=== PATIENT | female | born 1960 | race Caucasian/White ===

== ENCOUNTER → 2018-05-22 | Outpatient (CLI) | payer BC | END | disposition home or self-care (01) | LOC: LABPAT 12:20 | PROVIDERS: ATTEND Orthopaedic Surgery | DX: Z01.812 Encounter for preprocedural laboratory examination (principal) | CPT/HCPCS: 87070 ==

== ENCOUNTER 2018-05-29 10:28 | Inpatient (IN) | payer BC ==
[~2018-05-29 10:28] MED LIST: ACETAMINOPHEN TAB 500 MG TAB PO ONE; DEXAMETHASONE SOD PHOSPHATE 10 MG/ML 1 ML VIAL IV ONE; HYDROmorphone 1 MG/ML 1 ML SYRINGE IVP PRN; MIDAZOLAM 2 MG/2 ML VIAL IV PRN; ONDANSETRON 4 MG/2 ML VIAL IVP ONE; SCOPOLAMINE 1.5MG/72HR PATCH TRANSDERM ONE; TRANEXAMIC ACID 1,000 MG in SODIUM CHLORIDE 0.9% 50 ML IVPB ONE; ceFAZolin IN SWFI 2 GM/20 ML SYRINGE IVP ONE
[2018-05-29] MEDS: LACTATED RINGERS 1,000 ML IV SCH ×3 (11:41→23:33)
[2018-05-29] MEDS ORDERED: LIDOCAINE 1% 20 ML VIAL (10MG/ML) FOR IV START INTRADERMA ONE (11:42)
[2018-05-29] MEDS ORDERED: MIDAZOLAM 2 MG/2 ML VIAL ONE (12:33)
[2018-05-29] MEDS ORDERED: TRANEXAMIC ACID 1,000 MG/10 ML VIAL ONE (12:33)
[2018-05-29] MEDS ORDERED: SODIUM CHLORIDE 0.9% 100 ML BAG ONE (12:33)
[2018-05-29] MEDS ORDERED: PROPOFOL 10 MG/ML 20 ML VIAL IV ONE (12:33)
[2018-05-29] MEDS ORDERED: fentaNYL (PF) 50 MCG/ML 2 ML AMP ONE (12:33)
[2018-05-29] MEDS ORDERED: ceFAZolin 3,000 MG in SODIUM CHLORIDE 0.9% IRRIGATIO 3,000 ML IRRIGATION ONE (13:08)
[2018-05-29] MEDS: ROPIVACAINE 246.25 MG, EPINEPHrine 0.5 MG, KETOROLAC 30 MG, cloNIDine HCL/PF 80 MCG, WA... MISCELLANE ONE ×10 (13:24→13:59)
[2018-05-29] MEDS ORDERED: LACTATED RINGERS 1,000 ML IV ONE (14:15)
--- NOTE | 2018-05-29 14:17 | P.OP ---
Date of Procedure: 05/29/18 Procedure(s) Performed: PREOPERATIVE DIAGNOSIS: Left knee severe osteoarthritis with genu varum POSTOPERATIVE DIAGNOSIS: Left knee severe osteoarthritis with genu varum OPERATION: Left knee cemented total replacement arthroplasty. ANESTHESIA: Spinal ESTIMATED BLOOD LOSS: 100 ml. AUTO [employer] CONDITIONING INSTALLER: Jocelyn West PA-C (assistance with: patient positioning, retraction, exposure, hemostasis, leg positioning, implantation, irrigation, closure, dressing) COMPLICATIONS: None apparent. COMPONENTS IMPLANTED: Persona system from [employer] INDICATIONS: Anita is a 57-year-old female with a history of left knee osteoarthritis. Conservative treatment has been tried and has been unsuccessful in controlling symptoms adequately. The operation of knee replacement has been discussed at length in the office, as well as potential risks and complications. These are inclusive of, but not limited to: bleeding, infection, scarring, discomfort, blood vessel and nerve damage, need for further surgery, failure to relieve symptoms, persistence, recurrence, or worsening of problems, loosening, dislocation, wear, blood clot, pulmonary embolism, , gait dysfunction, stiffness, and other risks as discussed in the office. The patient elects to proceed and the consent form has been signed. PROCEDURE: The patient was taken to the operating room and positioned on the operating room table in the supine position. Anesthesia was initiated. Care was taken to make sure that all pressure points were adequately padded. The operative lower extremity was prepped and draped in the usual aseptic fashion using ChloraPrep. Ioban drape was used for the case and the patient received intravenous antibiotics within one hour of the incision. A pneumotourniquet and leg dwyer were used for the case. The limb was exsanguinated with an Esmarch bandage and the tourniquet was inflated to 350 mmHg. Time-out was called confirming the patient's identity, side, procedure and administration of antibiotics and tranexamic acid, 1 g IV. The incision was then created midline directly over the knee, carried down through skin and into the subcutaneous tissues and down to fascia. Full thickness subcutaneous medial flap was developed. Medial parapatellar arthrotomy was performed and the interior of the knee was inspected. There was end-stage osteoarthritis of the knee with a mild to moderate genu varum type deformity. The fat pad was excised and proximal medial release on the tibia was completed using meticulous dissection and a curved osteotome. The anterior cruciate ligament was taken down. Note was made of significant attrition of the anterior and significant degenerative appearance of the posterior cruciate ligaments. The exposure was excellent. The knee was flexed 90 degrees and the patella was everted. A spot was chosen on the femur approximately 1 cm anterior to the posterior cruciate ligament insertion and an intramedullary hole was created within the femur. The intramedullary guide was then set to 5 degrees of valgus. The distal cutting block was attached and pinned into position. An appropriate amount of distal femoral resection was set. The oscillating saw was then used to make the distal femoral cut. This cut was confirmed to be flat with the flat end of an osteotome. The retractors were placed around the tibia and the tibial surface was addressed. The angle and depth of resection was adjusted using an extramedullary cutting guide. The guide had a built-in 3 degree posterior slope cut. Once the cutting guide was adjusted appropriately and in line with the axis of the tibia and confirmed to be in good position in relation to the second metatarsal and transmalleolar axis, the tibial cut was then created with protection of the posterior neurovascular structures and the collateral ligaments. The tibial cut surface was removed and sized. Femoral sizing was then accomplished using anterior referencing. Care was taken to analyze the posterior condyles for signs of deficiency or severe wear, and adjustments to the guide were made, as appropriate. 3 degree external rotation pins were placed. The cutting jig for the femur was applied to these pins. The planned cuts were further analyzed prior to performing them with the oscillating saw. No femoral notching was produced. Bone fragments were removed and the cut surfaces were finished, as necessary, with a reciprocating saw. Spacer block technique was then used to confirm that the flexion and extension gaps were equal. Soft tissue releases and adjustment of the tibial and/or femoral cuts were made, as necessary, until the gaps were equal. This included release of the posterior cruciate ligament, which was tight in this patient. The femur was then further finished for a posterior cruciate ligament substituting component. Patellar resurfacing was performed using a reamer. The size of the required patellar component was estimated and the patellar surface was then reamed down to a residual thickness which would recreate the [place] thickness with the component. The exact placement of the patellar component was adjusted for position based on preoperative x-rays and intraoperative findings. Prior to placing trial components, anesthetic solution consisting of ropivicaine with epinephrine, ketorolac, and clonidine was injected carefully and methodically in a grid pattern using aspiration technique into the soft tissue around the knee circumferentially, starting with the deeper tissues first and progressing to fascia, and then finally the skin/subcutaneous tissue. Particular care was taken when injecting the posterior capsule. The trial components were inserted. The tibial tray was allowed to self center and the patella was noted to track very well. The position of the tibial component was marked and the tibia was then finished for a stemmed tibial component. Cement was mixed on the back table and applied to the final components. Trial components were removed and the cut surfaces of the bone were pulse lavaged thoroughly and dried. Cement was then applied to the tibial surface and pressurized into the surface using finger pressurization technique. The tibial component was then applied and excess cement was removed after it was impacted securely and noted to be flush with the cut surface. In similar fashion, the cement was applied to the cut femoral surface, pressurized in using finger pressurization and the component was impacted into place. Excess cement was removed. The polyethylene spacer was then implanted and locked into position. The patellar component was then applied in similar technique and a patellar clamp was used to hold the patella in place as the cement hardened. Once the cement had fully hardened, the knee was reinspected. Any other cement extrusion was removed and final kinematic testing showed range of motion from 0 to 130 degrees with excellent stability, both medially and laterally and appropriate alignment of the leg. Patellar tracking was excellent. The knee was then thoroughly pulse lavaged with normal saline. The tourniquet was deflated and hemostasis was obtained with electrocautery and IV tranexamic acid, 1 g given prior to inflation of the tourniquet and another gram given at the time of closure. Closure was with #2 Ethibond in the fascia and supplemented with #2 Quill, 2-0 Vicryl suture was used for the subcutaneous tissues and 3-0 Quill for the skin. Dermabond/Steri-Strips were then applied. A lightly compressive dressing was applied using Webril and an Angel wrap. The patient was then transferred to stretcher and taken to the recovery room in stable condition. Sponge and needle counts were correct.
[2018-05-29] MEDS ORDERED: ONDANSETRON 4 MG/2 ML VIAL IVP PRN (14:54)
[2018-05-29] MEDS ORDERED: hydrOXYzine PAMOATE 25 MG CAP PO PRN (14:54)
[2018-05-29] MEDS ORDERED: BISACODYL 10 MG SUPP RECTAL PRN (14:54)
[2018-05-29] MEDS ORDERED: HYDROmorphone 1 MG/ML 1 ML SYRINGE IVP PRN ×3 (14:54)
[2018-05-29] MEDS ORDERED: NALOXONE 0.4 MG/ML 1 ML VIAL IV PRN (14:54)
[2018-05-29] MEDS ORDERED: MAGNESIUM HYDROXIDE 2,400 MG/10 ML CUP PO PRN (14:54)
[2018-05-29] MEDS ORDERED: NA PHOS,M-B/NA PHOS,DI-BA 133 ML ENEMA RECTAL PRN (14:54)
--- NOTE | 2018-05-29 15:38 | XR ---
EXAMINATION TYPE: XR knee limited LT DATE OF EXAM: 05/29/2018 COMPARISON: NONE HISTORY: 57-year-old female evaluation for postoperative abnormality and alignment TECHNIQUE: 2 views FINDINGS: Images show placement of left total knee arthroplasty. Both distal femoral and proximal tibial compon ents of the prosthesis are well seated without periprosthetic fracture. Anterior soft tissue swelling with soft tissue air as well as intra-articular air in joint effusion compatible with recent operati on. Alignment grossly anatomic. Some retained most bodies are present laterally, possibly in the infe rior gutter measuring up to 7 mm and posteriorly measuring up to 1.3 cm, possibly along the popliteus tendon sheath. IMPRESSION: Uncomplicated postoperative appearance left total knee arthroplasty. Some retained loose bodies later ally and posteriorly.
[2018-05-29 16:13] VITALS: BMI 33.5
[2018-05-29] MEDS: HYDROcodone/APAP 5-325MG 1 EACH TAB PO PRN (17:22)
[2018-05-29] MEDS ORDERED: SENNOSIDES-DOCUSATE SODIUM 1 EACH TAB PO SCH (21:00)
[2018-05-29] MEDS: ceFAZolin IN SWFI 2 GM/20 ML SYRINGE IVP SCH (21:18)
[2018-05-29] MEDS ORDERED: TEMAZEPAM 15 MG CAP PO PRN (22:00)
[2018-05-29] MEDS: ASCORBIC ACID 500 MG TAB PO SCH (22:51)
[2018-05-29] MEDS: amLODIPine 2.5 MG TAB PO SCH (22:51)
[2018-05-29] MEDS: FAMOTIDINE 20 MG TAB PO SCH (22:52)
[2018-05-29] MEDS: PARoxetine 20 MG TAB PO SCH (22:52)
[2018-05-29] MEDS: ASPIRIN 81 MG PO SCH (22:52)
[2018-05-29] MEDS: PANTOPRAZOLE 40 MG TABLET PO SCH (22:52)
[2018-05-29] MEDS: CYANOCOBALAMIN 500 MCG TAB PO SCH (22:52)
--- NOTE | 2018-05-29 23:18 | CONS ---
CONSULTATION DATE OF SERVICE: 05/29/2018. REASON FOR CONSULTATION: Advice regarding hypertension and other medical issues requested by Dr. Lobato. HISTORY OF PRESENT ILLNESS: This 57-year-old woman with a past medical history of multiple medical problems, including GERD, hypertension, DJD, history of hiatal hernia, being followed by Dr. Jo-Ann Harrington in the outpatient setting underwent left knee arthroplasty. The patient tolerated the procedure well. There is no history of fever, rigors or chills. No history of headache, loss of consciousness. The patient is complaining of mild left ankle pain. PAST MEDICAL HISTORY: History of GERD, hypertension, DJD, history of hiatal hernia, history of depression. MEDICATIONS: Prior to admission include home medications are: 1. Norvasc 2.5 mg daily. 2. Ranitidine 150 mg p.o. daily. 3. Paxil 40 mg daily. 4. Omeprazole 20 mg. 5. Meloxicam 50 mg. 6. Glucosamine 3 tablets p.o. daily. 7. Aspirin 81 mg p.o. daily. 8. Vitamin C 1000 mg p.o. daily. 9. Senokot-S 1 tablet p.o. b.i.d. 10.Xarelto 10 mg p.o. daily. 11.[place] 5 mg 1-2 tablets q.4h 6 p.r.n. 12.Aspirin 81 mg p.o. daily. ALLERGIES: None. FAMILY HISTORY: History of cancer in the family. SOCIAL HISTORY: Previous history of smoking, occasional alcohol intake. REVIEW OF SYSTEMS: ENT: No diminished vision. No diminished hearing. CARDIOVASCULAR: No angina or palpitations. RESPIRATIONS: No cough or hemoptysis. GI no nausea or vomiting. no dysuria. Nervous system: No numbness or weakness. Allergy/immunology: No asthma or hayfever. MUSCULOSKELETAL: As mentioned earlier. Hematology/Oncology: No history of anemia. ENDOCRINE: No history of diabetes or hypothyroidism. CONSTITUTIONAL: As mentioned earlier. Dermatology: Negative. Rheumatology: Negative. Psychiatry: As mentioned earlier. PHYSICAL EXAMINATION: The patient is alert and oriented x3. Pulse 88, blood pressure 116/71, respirations 18, temperature 98.1, pulse ox 94% on room air. HEENT: Conjunctivae normal. Oral mucosa moist. Neck is no jugular venous distention. No carotid bruit. No lymph node enlargement. Cardiovascular system: S1, S2 muffled. Respiratory: Breath sounds diminished in the bases. No rhonchi and no crackles. ABDOMEN: Soft, nontender. No mass palpable. LEGS: Status post left knee arthroplasty. NERVOUS SYSTEM: Higher functions as mentioned earlier. Moves all 4 limbs. No focal motor or sensory deficits. Lymphatics: No lymph nodes palpable in the neck, axillae or groin. SKIN: No ulcer, rash or bleeding. LABS: Not available. ASSESSMENT: 1. Status post left total knee joint arthroplasty. 2. Hypertension. 3. Degenerative joint disease. 4. Hiatal hernia. 5. History of gastroesophageal reflux disease. 6. Depression. RECOMMENDATIONS AND DISCUSSION: In this 57-year-old woman who presented with multiple medical issues, we will monitor the patient closely, continue the current medications, management and symptomatic treatment. Recommend to resume the home medications. Monitor blood pressure closely. Otherwise, DVT prophylaxis. Incentive spirometer. Follow the patient closely with you. Thank you Dr. Lobato for letting us participate in the care of this patient. MMJUSTINAL / IJN: [id number] /
[2018-05-30] MEDS: HYDROcodone/APAP 5-325MG 1 EACH TAB PO PRN ×4 (00:04→17:10)
[2018-05-30] MEDS: ceFAZolin IN SWFI 2 GM/20 ML SYRINGE IVP SCH (04:57)
[2018-05-30] MEDS: LACTATED RINGERS 1,000 ML IV SCH ×2 (05:09→13:34)
[2018-05-30 08:00] VITALS: BP 146/75; PULSE 69; RESP 16; TEMP 98.1
[2018-05-30] MEDS: amLODIPine 2.5 MG TAB PO SCH (08:53)
[2018-05-30] MEDS: ASCORBIC ACID 500 MG TAB PO SCH (08:54)
[2018-05-30] MEDS: FAMOTIDINE 20 MG TAB PO SCH (08:54)
[2018-05-30] MEDS: CYANOCOBALAMIN 500 MCG TAB PO SCH (08:54)
[2018-05-30] MEDS: ASPIRIN 81 MG PO SCH (08:54)
[2018-05-30] MEDS: PANTOPRAZOLE 40 MG TABLET PO SCH (08:55)
[2018-05-30] MEDS: PARoxetine 20 MG TAB PO SCH (08:55)
[2018-05-30] MEDS ORDERED: RIVAROXABAN 10 MG TAB PO SCH (09:00)
[2018-05-30] MEDS ORDERED: MELOXICAM 7.5 MG TAB PO SCH (09:00)
[2018-05-30 10:27] LABS: Basophils % (A) 0 %; Eosinophils % (A) 0 %; HCT 39.6 % (34.0-46.0); HGB 12.7 gm/dL (11.4-16.0); Lymphocytes # (A) 1.2 k/uL (1.0-4.8); Lymphocytes % (A) 8 %; MCH 29.5 pg (25.0-35.0); MCV 92.3 fL (80.0-100.0); Mean Platelet Volume 7.4; Monocytes # (A) 0.8 k/uL (0-1.0); Monocytes % (A) 5 %; Neutrophils # (A) 14.2 k/uL (1.3-7.7); Neutrophils % (A) 87 %; Platelet Count 274 k/uL (150-450); RDW 11.9 % (11.5-15.5); WBC 16.4 k/uL (3.8-10.6)
[2018-05-30] MEDS ORDERED: MULTIVITAMINS, THERA 1 EACH TAB PO SCH (12:00)
--- NOTE | 2018-05-30 12:49 | P.DS ---
Providers Date of admission: 05/29/18 10:46 Expected date of discharge: 05/30/18 Attending physician: Leland Lobato Consults: 05/29/18 14:54 Consult Physician Routine Consulting Provider: Jo-Ann Harrnigton Consult Reason/Comments: Medical management Do you want consulting provider notified?: Yes 05/30/18 10:12 Consult Physician Routine Consulting Provider: Ayaka Weinstein Consult Reason/Comments: medical management Do you want consulting provider notified?: Yes Primary care physician: Stated None - Discharge Diagnosis(es) (1) Osteoarthritis of left knee Current Visit: Yes Status: Acute (2) Status post total left knee replacement Current Visit: Yes Status: Acute Hospital Course: This is a 57-year-old female who was last seen with complaint of continued left knee pain. The patient has a known history of degenerative arthritis of the left knee and presents to discuss surgical options. After discussion and consideration the patient elects to proceed with total left knee arthroplasty. The patient is seen preoperatively by her primary care physician and cleared for surgery. The patient is admitted to [facility] for total left knee arthroplasty. The procedures performed without complication or sequelae. He is doing well postoperatively. Vital signs are stable at discharge. Labs are stable at discharge. the patient is ambulating well with walker with minimal assistance. The patient is discharged to home on postop day #1 pending medical clearance. Please see orders and refer to the [facility] rec for accurate list of medications. Patient Condition at Discharge: Good Plan - Discharge Summary Discharge Rx Participant: Yes New Discharge Prescriptions: New Aspirin [Adult Low Dose Aspirin EC] 81 mg PO DAILY #1 tablet. HYDROcodone/APAP 5-325MG [[place] 5-325] 1 - 2 each PO Q4-6H PRN #50 tab PRN Reason: Pain Rivaroxaban [Xarelto] 10 mg PO DAILY #5 tab Sennosides-Docusate Sodium [Senokot-S] 1 tab PO BID #60 tablet No Action Ranitidine HCl 150 mg PO DAILY amLODIPine BESYLATE [Norvasc] 2.5 mg PO DAILY Aspirin EC [Ecotrin Low Dose] 81 mg PO DAILY PARoxetine HCL 40 mg PO DAILY Omeprazole 20 mg PO DAILY Meloxicam 15 mg PO DAILY Glucosamine/MSM/Chrond/D3/Bosw [Raezsmorlpe-Ecuvby-MOD-D3 Cplt] 3 tablet PO DAILY Cyanocobalamin (Vitamin B-12) [Vitamin B-12] 1,000 mcg PO DAILY Ascorbic Acid [Vitamin C] 1,000 mg PO DAILY Discharge Medication List Ascorbic Acid [Vitamin C] 1,000 mg PO DAILY 05/19/18 [History] Aspirin EC [Ecotrin Low Dose] 81 mg PO DAILY 05/19/18 [History] Cyanocobalamin (Vitamin B-12) [Vitamin B-12] 1,000 mcg PO DAILY 05/19/18 [ History] Glucosamine/MSM/Chrond/D3/Bosw [Snujsfmhlix-Ycphiy-HQW-D3 Cplt] 3 tablet PO DAILY 05/19/18 [History] Meloxicam 15 mg PO DAILY 05/19/18 [History] Omeprazole 20 mg PO DAILY 05/19/18 [History] PARoxetine HCL 40 mg PO DAILY 05/19/18 [History] Ranitidine HCl 150 mg PO DAILY 05/19/18 [History] amLODIPine BESYLATE [Norvasc] 2.5 mg PO DAILY 05/19/18 [History] Aspirin [Adult Low Dose Aspirin EC] 81 mg PO DAILY #1 tablet.dr 05/29/18 [Rx] HYDROcodone/APAP 5-325MG [[place] 5-325] 1 - 2 each PO Q4-6H PRN #50 tab 05/29/18 [Rx] Rivaroxaban [Xarelto] 10 mg PO DAILY #5 tab 05/29/18 [Rx] Sennosides-Docusate Sodium [Senokot-S] 1 tab PO BID #60 tablet 05/29/18 [Rx] Follow up Appointment(s)/Referral(s): Jocelyn West PAC [PHYSICIAN WINCHMAN/CRANE OPERATOR] - 06/14/18 1:00 pm Jo-Ann Harrington MD [STAFF PHYSICIAN] - 1 Week [facility], [NON-STAFF] - Ambulatory/Diagnostic Orders: Continuous Passive Motion (CPM) Machine [DME.AMB1] Time Frame: 3 Weeks, Facility : [facility], Location: Case Management Activity/Diet/Wound Care/Special Instructions: May bear wt as tolerated with walker. May shower if no drainage from incision. CPM 5-6h daily. Discharge Disposition: HOME WITH HOME HEALTH SERVICES
--- NOTE | 2018-05-30 16:55 | PN ---
PROGRESS NOTE DATE OF SERVICE: 05/30/2018 This 57-year-old woman who was admitted after left total knee arthroplasty is improving significantly. No chest pain. No palpitations. No fever. On exam, alert and oriented x3. Pulse 69, blood pressure 146/75, respirations 16, temperature 98.1, pulse ox 93% on room air. HEENT: Conjunctivae normal. NECK: No jugular venous distention. CARDIOVASCULAR SYSTEM: S1, S2 muffled. RESPIRATORY SYSTEM: Breath sounds diminished at the bases. No rhonchi. No crackles. ABDOMEN: Soft, non-tender. LEGS: Status post left knee arthroplasty. NERVOUS SYSTEM: No focal deficit. LABS: WBC 16.4. ASSESSMENT: 1. Status post left total knee joint arthroplasty. 2. Hypertension. 3. Degenerative joint disease. 4. Hiatal hernia. 5. History of gastroesophageal reflux disease. 6. Depression. RECOMMENDATIONS AND DISCUSSION: I recommend to continue current medication, continue with symptomatic treatment. Otherwise, closely follow with the primary physician. Rest of the recommendations per Orthopedic Surgery. Further recommendations to follow. MMODL / IJN: [id number] /
== END 2018-05-30 17:33 | disposition home health service (06) | DRG 470 ==
LOC: 2ORMAIN 10:46 → 4SSUR 14:43
PROVIDERS: ADMIT Orthopaedic Surgery; ATTEND Orthopaedic Surgery
PROC: 0SRD0J9 Replacement of Left Knee Joint with Synthetic Substitute, Cemented, Open Approach (ICD-10-PCS; principal; 2018-05-29 12:30)
DX: M17.12 Unilateral primary osteoarthritis, left knee (principal); M21.162 Varus deformity, not elsewhere classified, left knee; F32.9 Major depressive disorder, single episode, unspecified; K21.9 Gastro-esophageal reflux disease without esophagitis; I10 Essential (primary) hypertension; Z79.82 Long term (current) use of aspirin; Z79.899 Other long term (current) drug therapy; Z87.891 Personal history of nicotine dependence; Z79.1 Long term (current) use of non-steroidal anti-inflammatories (NSAID); Z79.01 Long term (current) use of anticoagulants
CPT/HCPCS: 85025; 88300

== ENCOUNTER → 2018-08-18 | Outpatient (CLI) | payer BC ==
--- NOTE | 2018-08-21 09:54 | MM ---
Reason for exam: screening (asymptomatic). Last mammogram was performed 13 years and 3 months ago. History: Took hormonal contraceptives for 35 years beginning at age 22. Physical Findings: A clinical breast exam by your physician is recommended on an annual basis and results should be correlated with mammographic findings. MG Screening Mammo w CAD Bilateral CC and MLO view(s) were taken. No prior studies available for comparison. The breast tissue is heterogeneously dense. This may lower the sensitivity of mammography. There is chronic nodularity. There is no dominant lesion. ASSESSMENT: Benign, BI-RAD 2 RECOMMENDATION: Routine screening mammogram of both breasts in 1 year.
== END | disposition home or self-care (01) ==
LOC: RADMAMWWP 07:08
PROVIDERS: ATTEND Family Medicine
DX: Z12.31 Encounter for screening mammogram for malignant neoplasm of breast (principal)
CPT/HCPCS: 77067

== ENCOUNTER → 2019-02-03 | Outpatient (CLI) | payer BC ==
[2019-02-03 08:59] LABS: ALT 30 U/L (9-52); AST 23 U/L (14-36); African American GFR (CKD) >90 (>60 ml/min/1.73 sqM); Albumin 4.7 g/dL (3.5-5.0); Alkaline Phosphatase 104 U/L (38-126); Anion Gap 9 mmol/L; Blood Urea Nitrogen 17 mg/dL (7-17); Calcium 9.7 mg/dL (8.4-10.2); Carbon Dioxide 31 mmol/L (22-30); Chloride 102 mmol/L (98-107); Glucose 134 mg/dL (74-99); Potassium 4.3 mmol/L (3.5-5.1); Sodium 142 mmol/L (137-145); Total Bilirubin 0.4 mg/dL (0.2-1.3); Total Protein 7.8 g/dL (6.3-8.2)
[2019-02-03 09:13] LABS: HCT 43.5 % (34.0-46.0); HGB 14.4 gm/dL (11.4-16.0); MCH 29.5 pg (25.0-35.0); MCHC 33.2 g/dL (31.0-37.0); MCV 88.8 fL (80.0-100.0); Mean Platelet Volume 7.4; Platelet Count 224 k/uL (150-450); RDW 12.6 % (11.5-15.5)
[2019-02-03 09:21] LABS: INR 0.9 (<1.2); Partial Thromboplastin Time 27.1 sec (22.0-30.0); Prothrombin Time 9.8 sec (9.0-12.0)
[2019-02-03 10:02] LABS: Appearance,Urine Clear (Clear); Bilirubin,Urine Negative (Negative); Blood,Urine Negative (Negative); Color,Urine Light Yellow; Glucose,Urine (UA) Negative (Negative); Ketones,Urine Negative (Negative); Leukocyte Esterase,Urine Moderate (Negative); Mucus,Urine Rare /hpf; Nitrite,Urine Negative (Negative); Protein,Urine Negative (Negative); RBC,Urine 2 /hpf (0-5); Specific Gravity,Urine 1.009 (1.001-1.035); Squamous Epithelial Cell,Urine 5 /hpf (0-4); Urobilinogen,Urine <2.0 mg/dL (<2.0); WBC,Urine 5 /hpf (0-5)
== END | disposition home or self-care (01) ==
LOC: LABPAT 08:13
PROVIDERS: ATTEND Orthopaedic Surgery
DX: Z01.812 Encounter for preprocedural laboratory examination (principal); M17.11 Unilateral primary osteoarthritis, right knee
CPT/HCPCS: 36415; 80053; 81001; 85027; 85610; 85730; 87070

== ENCOUNTER 2019-02-12 13:32 | Day surgery (SDC) | payer BC ==
[2019-02-05 11:13] VITALS: BMI 33.8
[~2019-02-12 13:32] MED LIST changes: -ACETAMINOPHEN TAB 500 MG TAB PO ONE; +HYDROmorphone 0.5 MG/0.5 ML SYRINGE IVP PRN; -HYDROmorphone 1 MG/ML 1 ML SYRINGE IVP PRN; +MELOXICAM 7.5 MG TAB PO ONE; -MIDAZOLAM 2 MG/2 ML VIAL IV PRN; +ROPIVACAINE 246.25 MG, EPINEPHrine 0.5 MG, KETOROLAC 30 MG, cloNIDine HCL/PF 80 MCG, WA... MISCELLANE STA; +TRANEXAMIC ACID 1,000 MG in SODIUM CHLORIDE 0.9% 100 ML IVPB ONE; -TRANEXAMIC ACID 1,000 MG in SODIUM CHLORIDE 0.9% 50 ML IVPB ONE; -ceFAZolin IN SWFI 2 GM/20 ML SYRINGE IVP ONE
[2019-02-12] MEDS ORDERED: ACETAMINOPHEN TAB 500 MG TAB PO ONE (14:15)
[2019-02-12] MEDS: LACTATED RINGERS 1,000 ML IV SCH ×2 (14:19→21:10)
[2019-02-12] MEDS: MIDAZOLAM 2 MG/2 ML VIAL IV PRN ×2 (14:43→15:15)
[2019-02-12] MEDS: fentaNYL (PF) 50 MCG/ML 2 ML AMP IV ONE ×2 (14:43→15:15)
[2019-02-12] MEDS ORDERED: ROPIVACAINE 0.2%-NS ON-Q PUMP 1,090 MG, EMPTY PAIN BALL 1 EACH MISCELLANE PRN (15:15)
--- NOTE | 2019-02-12 15:17 | P.ANPRN ---
Procedure Note - Anesthesia - Nerve Block Performed Right Adductor Canal Infusion Time Out Performed: Yes Date of Procedure: 02/12/19 Procedure Start Time: 14:43 Location of Patient Procedure: PreOp Indication: Acute Post-Operative Pain Specifically requested for management of pain by DrTamiko: Leland Lobato Sedation Type: Sedate with meaningful contact maintained Preparation: Sterile Prep Position: Supine Catheter Depth at Skin (cm): 7 Catheter: Indwelling Needle Types: Pajunk Needle Gauge: 18 Technique: Ultrasound Injectate: 0.5% Ropivacaine (see comment for volume) (20 cc) Blood Aspirated: No Pain Paresthesia on Injection Noted: No Resistance on Injection: Normal Events: Uneventful and Well Tolerated
[2019-02-12] MEDS ORDERED: fentaNYL (PF) 50 MCG/ML 2 ML AMP ONE (15:19)
[2019-02-12] MEDS ORDERED: MIDAZOLAM 2 MG/2 ML VIAL ONE (15:19)
[2019-02-12] MEDS ORDERED: TRANEXAMIC ACID 1,000 MG/10 ML VIAL ONE (15:19)
[2019-02-12] MEDS ORDERED: SODIUM CHLORIDE 0.9% 100 ML BAG ONE (15:19)
[2019-02-12] MEDS ORDERED: PROPOFOL 10 MG/ML 20 ML VIAL IV ONE (15:19)
[2019-02-12] MEDS ORDERED: ceFAZolin 3,000 MG in SODIUM CHLORIDE 0.9% IRRIGATIO 3,000 ML IRRIGATION ONE ×4 (16:03)
--- NOTE | 2019-02-12 17:02 | P.OP ---
Date of Procedure: 02/12/19 Procedure(s) Performed: PREOPERATIVE DIAGNOSIS: Right knee severe osteoarthritis with genu varum POSTOPERATIVE DIAGNOSIS: Right knee severe osteoarthritis with genu varum OPERATION: Right knee cemented total replacement arthroplasty. ANESTHESIA: Spinal ESTIMATED BLOOD LOSS: 50 ml. REGULATORY AFFAIRS SPECIALIST: Jocelyn West PA-C (assistance with: patient positioning, retraction, exposure, hemostasis, leg positioning, implantation, irrigation, closure, dressing) COMPLICATIONS: None apparent. COMPONENTS IMPLANTED: Journey II BCS [facility] INDICATIONS: Mrs. Smith is a 58 year old female with a history of right knee osteoarthritis. The patient's knee is end-stage, and conservative management has failed. The operation of knee replacement has been discussed at length in the office, as well as potential risks and complications. These are inclusive of, but not limited to: bleeding, infection, scarring, discomfort, blood vessel and nerve damage, need for further surgery, failure to relieve symptoms, persistence, recurrence, or worsening of problems, loosening, dislocation, wear, blood clot, pulmonary embolism, , gait dysfunction, stiffness, and other risks as discussed in the office. The patient elects to proceed and the consent form has been signed. PROCEDURE: The patient was taken to the operating room and positioned on the operating room table in the supine position. Anesthesia was initiated. Care was taken to make sure that all pressure points were adequately padded. The right operative lower extremity was prepped and draped in the usual aseptic fashion using ChloraPrep. Ioban drape was used for the case and the patient received intravenous antibiotics within one hour of the incision. A pneumotourniquet and leg dwyer were used for the case. The limb was exsanguinated with an Esmarch bandage and the tourniquet was inflated to 350 mmHg. Time-out was called confirming the patient's identity, side, procedure and administration of antibiotics and tranexamic acid. The incision was then created midline directly over the left knee, carried down through skin and into the subcutaneous tissues and down to fascia. Full thickness subcutaneous medial flap was developed. Medial parapatellar arthrotomy was performed and the interior of the knee was inspected. There was end-stage osteoarthritis of the knee with a mild to moderate genu varum type deformity. The fat pad was excised and proximal medial release on the tibia was completed using meticulous dissection and a curved osteotome. The anterior cruciate ligament was taken down. Note was made of significant attrition of the anterior and significant degenerative appearance of the cruciate ligaments. The exposure was excellent. The knee was flexed 90 degrees and the patella was everted. The Visionaire pre- made distal cutting block was attached and pinned into position. The planned cut was analyzed visually and found to be satisfactory without the need for any adjustment. The oscillating saw was then used to make the distal femoral cut. This cut was confirmed to be flat with the flat end of an osteotome. The retractors were placed around the tibia and the tibial surface was addressed. The Visionaire pre-made guide was placed onto the exposed tibial surface and pinned into position to krsitin the rotational alignment. The alignment of the guide was checked for depth of plannned resection, slope, and varus valgus. Guide was confirmed to be in good position and the tibial cut was then created with protection of the posterior neurovascular structures and the collateral ligaments. The tibial cut surface was removed and sized. Femoral sizing was then accomplished using posterior referencing. Care was taken to analyze the posterior condyles for signs of deficiency or severe wear, and adjustments to the guide were made, as appropriate. 3 degree external rotation pins were placed relative to [place]'s line. The cutting jig for the femur was applied to these pins. The planned cuts were further analyzed prior to performing them with the oscillating saw. No femoral notching was produced. Bone fragments were removed and the cut surfaces were finished, as necessary, with a reciprocating saw. Spacer block technique was then used to confirm that the flexion and extension gaps were equal. Soft tissue releases and adjustment of the tibial and/or femoral cuts were made, as necessary, until the gaps were equal. This included release of the posterior cruciate ligament, which was excessively tight in this patient. The femur was then further finished for a posterior cruciate ligament substituting component. Patellar resurfacing was performed using a reamer. The size of the required patellar component was estimated and the patellar surface was then reamed down to a residual thickness which would recreate the [place] thickness with the c omponent. The exact placement of the patellar component was adjusted for position based on preoperative x-rays and intraoperative findings. Prior to placing trial components, anesthetic solution consisting of ropivicaine with epinephrine, ketorolac, and clonidine was injected carefully and methodically in a grid pattern using aspiration technique into the soft tissue around the knee circumferentially, starting with the deeper tissues first and progressing to fascia, and then finally the skin/subcutaneous tissue. Particular care was taken when injecting the posterior capsule. The trial components were inserted. The tibial tray was allowed to self center and the patella was noted to track very well. The position of the tibial component was marked and noted to be nearly exactly aligned with the pre-drilled holes from the Visionaire guide. The tibia was then finished for a stemmed tibial component. Cement was mixed on the back table and applied to the final components. Trial components were removed and the cut surfaces of the bone were pulse lavaged thoroughly and dried. Cement was then applied to the tibial surface and pressurized into the surface using finger pressurization technique. The tibial component was then applied and excess cement was removed after it was impacted securely and noted to be flush with the cut surface. In similar fashion, the cement was applied to the cut femoral surface, pressurized in using finger pressurization and the component was impacted into place. Excess cement was removed. The polyethylene spacer was then implanted and locked into position. The patellar component was then applied in similar technique and a patellar clamp was used to hold the patella in place as the cement hardened. Once the cement had fully hardened, the knee was reinspected. Any other cement extrusion was removed and final kinematic testing showed range of motion from 0 to 130 degrees with excellent stability, both medially and laterally and appropriate alignment of the leg. Patellar tracking was excellent. The knee was then thoroughly pulse lavaged with normal saline. The tourniquet was deflated and hemostasis was obtained with electrocautery and IV tranexamic acid, 1 g given at the start of the operation and 1 g at the start of closure. Closure was with #2 Ethibond in the fascia/capsule and supplemented with #2 Quill, 2-0 Vicryl suture was used for the subcutaneous tissues and 3-0 Quill for the skin. Dermabond/Steri-Strips were then applied. A lightly compressive dressing was applied using Webril and an Angel wrap. The patient was then transfe rred to stretcher and taken to the recovery room in stable condition. Sponge and needle counts were correct.
[2019-02-12] MEDS ORDERED: LACTATED RINGERS 1,000 ML IV ONE (17:17)
[2019-02-12] MEDS ORDERED: HYDROcodone/APAP 5-325MG 1 EACH TAB PO PRN ×2 (17:36)
[2019-02-12] MEDS ORDERED: BISACODYL 10 MG SUPP RECTAL PRN (17:36)
[2019-02-12] MEDS ORDERED: MAGNESIUM HYDROXIDE 2,400 MG/10 ML CUP PO PRN (17:36)
[2019-02-12] MEDS ORDERED: NA PHOS,M-B/NA PHOS,DI-BA 133 ML ENEMA RECTAL PRN (17:36)
[2019-02-12] MEDS ORDERED: HYDROmorphone 1 MG/ML 1 ML SYRINGE IVP PRN (17:36)
[2019-02-12] MEDS ORDERED: NALOXONE 0.4 MG/ML 1 ML VIAL IV PRN (17:36)
[2019-02-12] MEDS ORDERED: hydrOXYzine PAMOATE 25 MG CAP PO PRN (17:36)
[2019-02-12] MEDS ORDERED: HYDROmorphone 0.5 MG/0.5 ML SYRINGE IVP PRN ×2 (17:36)
--- NOTE | 2019-02-12 20:29 | XR ---
PROCEDURE: XR knee limited RT - 2V DATE AND TIME: 02/12/2019 6:00 PM CLINICAL INDICATION: PH[facility]; Evaluation for Postop abnormality and alignment TECHNIQUE: Department protocol COMPARISON: None FINDINGS: AP and crosstable lateral views were obtained. Postprocedure changes noted. The TKR appears anatomic in positioning and alignment. There are no unexpected findings. IMPRESSION: Postoperative views.
[2019-02-12] MEDS ORDERED: SENNOSIDES-DOCUSATE SODIUM 1 EACH TAB PO SCH (21:00)
[2019-02-12] MEDS: ASPIRIN 325 MG TAB PO SCH (21:11)
[2019-02-12] MEDS ORDERED: TEMAZEPAM 15 MG CAP PO PRN (22:00)
[2019-02-13] MEDS: LACTATED RINGERS 1,000 ML IV SCH ×2 (04:16→04:52)
[2019-02-13] MEDS: ASPIRIN 325 MG TAB PO SCH (07:21)
[2019-02-13 07:34] LABS: Basophils % (A) 0 %; Eosinophils # (A) 0.1 k/uL (0-0.7); Eosinophils % (A) 0 %; HCT 40.2 % (34.0-46.0); HGB 13.3 gm/dL (11.4-16.0); Lymphocytes # (A) 1.1 k/uL (1.0-4.8); Lymphocytes % (A) 6 %; Mean Platelet Volume 7.8; Monocytes # (A) 1.1 k/uL (0-1.0); Monocytes % (A) 6 %; Neutrophils # (A) 15.2 k/uL (1.3-7.7); Neutrophils % (A) 86 %; Platelet Count 256 k/uL (150-450); RBC 4.42 m/uL (3.80-5.40); RDW 13.6 % (11.5-15.5); WBC 17.6 k/uL (3.8-10.6)
[2019-02-13 08:08] VITALS: TEMP 97.7
[2019-02-13] MEDS ORDERED: CYANOCOBALAMIN 500 MCG TAB PO SCH (09:00)
[2019-02-13] MEDS ORDERED: NON-FORMULARY DRUG (Meloxicam [Meloxicam] 15 MG) PO SCH (09:00)
[2019-02-13] MEDS ORDERED: [UNRECOGNIZED DRUG - OTHER] PO SCH (09:00)
[2019-02-13] MEDS ORDERED: FAMOTIDINE 20 MG TAB PO SCH (09:00)
[2019-02-13] MEDS ORDERED: GLUCOSAMINE PO SCH (09:00)
[2019-02-13] MEDS ORDERED: PANTOPRAZOLE 40 MG TABLET PO SCH (09:00)
[2019-02-13] MEDS ORDERED: CHROND PO SCH (09:00)
[2019-02-13] MEDS ORDERED: PARoxetine 20 MG TAB PO SCH (09:00)
[2019-02-13] MEDS ORDERED: amLODIPine 2.5 MG TAB PO SCH (09:00)
[2019-02-13] MEDS ORDERED: D3 PO SCH (09:00)
[2019-02-13] MEDS ORDERED: MSM PO SCH (09:00)
[2019-02-13] MEDS ORDERED: ASCORBIC ACID 500 MG TAB PO SCH (09:00)
[2019-02-13] MEDS ORDERED: MELOXICAM 7.5 MG TAB PO SCH (09:00)
--- NOTE | 2019-02-13 09:28 | P.PN ---
Progress Note - Text Anesthesia POD 654. Patient is status post right TKR under spinal anesthesia with a right adductor canal catheter placed for postoperative pain relief. With ropivacaine 0.2% running at 8 cc's per hour, the patient's VAS is (0, 2). Catheter site is clean dry and intact.
--- NOTE | 2019-02-13 11:02 | P.DS ---
Providers Expected date of discharge: 02/13/19 Attending physician: Leland Lobato Consults: 02/12/19 17:36 Consult Physician Routine Consulting Provider: Helga Ramirez Consult Reason/Comments: Medical management Do you want consulting provider notified?: Yes Primary care physician: Jo-Ann Harrington - Discharge Diagnosis(es) (1) Osteoarthritis of right knee Current Visit: Yes Status: Acute (2) Status post total right knee replacement Current Visit: Yes Status: Acute Hospital Course: This is a 58-year-old female who was last seen with complaint of continued right knee pain. The patient has a known history of degenerative arthritis of the right knee and presents to discuss surgical options. After discussion and consideration the patient elects to proceed with total right knee arthroplasty. The patient is seen preoperatively by Dr. Cao and cleared for surgery. The patient is admitted to [facility] for total right knee arthroplasty. The procedures performed without complication or sequelae. Patient is doing well postoperatively. Vital signs are stable at discharge. Labs are stable at discharge. the patient is ambulating well with walker with minimal assistance. The patient is discharged to home on postop day #1 pending medical clearance. Please see orders and refer to the med rec for accurate list of medications. Plan - Discharge Summary Discharge Rx Participant: Yes New Discharge Prescriptions: New Aspirin 325 mg PO BID #120 tab HYDROcodone/APAP 5-325MG [[place] 5-325] 1 - 2 each PO Q4-6H PRN #50 tab PRN Reason: Pain Sennosides-Docusate Sodium [Senokot-S] 1 tab PO BID #60 tablet No Action amLODIPine BESYLATE [Norvasc] 2.5 mg PO DAILY Aspirin EC [Ecotrin Low Dose] 81 mg PO DAILY PARoxetine HCL 40 mg PO DAILY Omeprazole 20 mg PO DAILY Glucosamine/MSM/Chrond/D3/Bosw [Btxgxzjedel-Qordts-QLT-D3 Cplt] 3 tablet PO DAILY Cyanocobalamin (Vitamin B-12) [Vitamin B-12] 1,000 mcg PO DAILY Ascorbic Acid [Vitamin C] 1,000 mg PO DAILY Ranitidine HCl 150 mg PO DAILY Meloxicam 15 mg PO DAILY Discharge Medication List Ascorbic Acid [Vitamin C] 1,000 mg PO DAILY 05/19/18 [History] Aspirin EC [Ecotrin Low Dose] 81 mg PO DAILY 05/19/18 [History] Cyanocobalamin (Vitamin B-12) [Vitamin B-12] 1,000 mcg PO DAILY 05/19/18 [History] Glucosamine/MSM/Chrond/D3/Bosw [Scwmtzkqtre-Xvirsf-GEZ-D3 Cplt] 3 tablet PO DAILY 05/19/18 [History] Omeprazole 20 mg PO DAILY 05/19/18 [History] PARoxetine HCL 40 mg PO DAILY 05/19/18 [History] amLODIPine BESYLATE [Norvasc] 2.5 mg PO DAILY 05/19/18 [History] Meloxicam 15 mg PO DAILY 02/08/19 [History] Ranitidine HCl 150 mg PO DAILY 02/08/19 [History] Aspirin 325 mg PO BID #120 tab 02/13/19 [Rx] HYDROcodone/APAP 5-325MG [[place] 5-325] 1 - 2 each PO Q4-6H PRN #50 tab 02/13/19 [Rx] Sennosides-Docusate Sodium [Senokot-S] 1 tab PO BID #60 tablet 02/13/19 [Rx] Follow up Appointment(s)/Referral(s): Jocelyn West PAC [PHYSICIAN SIGN INSTALLER] - 03/01/19 3:45 pm [facility], [NON-STAFF] - Activity/Diet/Wound Care/Special Instructions: May bear weight as tolerated with walker. May shower if no drainage from incision. Discharge Disposition: HOME WITH HOME HEALTH SERVICES
--- NOTE | 2019-02-13 13:19 | P.CONS ---
History of Present Illness - Reason for Consult Leukocytosis, recommendations regarding antihypertensive medications - History of Present Illness Patient was admitted for dyspnea progressed to sepsis and underwent surgery patient is clinically doing well passing gas is being discharged today patient takes 2.5 mg of amlodipine blood pressure is fairly stable patient can be resumed on this medication. His discharge medications are reviewed home medications were reviewed. Patient does have leukocytosis without any evidence of infection denied any cough denied dysuria probably secondary to surgery. Review of Systems REVIEW OF SYSTEMS: CONSTITUTIONAL: No fever, no malaise, no fatigue. HEENT: No recent visual problems or hearing problems. Denied any sore throat. CARDIOVASCULAR: No chest pain, orthopnea, PND, no palpitations, no syncope. PULMONARY: No shortness of breath, no cough, no hemoptysis. GASTROINTESTINAL: No diarrhea, no nausea, no vomiting, no abdominal pain. NEUROLOGICAL: No headaches, no weakness, no numbness. HEMATOLOGICAL: Denies any bleeding or petechiae. GENITOURINARY: Denies any burning micturition, frequency, or urgency. MUSCULOSKELETAL/RHEUMATOLOGICAL: Denies any joint pain, swelling, or any muscle pain. ENDOCRINE: Denies any polyuria or polydipsia. The rest of the 14-point review of systems is negative. Past Medical History Past Medical History: GERD/Reflux, Hypertension, Osteoarthritis (OA) Additional Past Medical History / Comment(s): HIATAL HERNIA, VARICOSE VEINS, irregular heart beat, hx gestational diabetes, hx high triglycerides, degenerative disk disease History of Any Multi-Drug Resistant Organisms: None Reported Past Surgical History: Joint Replacement Additional Past Surgical History / Comment(s): COLD KNIFE CONIZATION, ORAL SX, VARICOSE VEIN STRIPPING LT LEG, left knee replacement Past Anesthesia/Blood Transfusion Reactions: No Reported Reaction Past Psychological History: Depression Smoking Status: Former smoker Past Alcohol Use History: Occasional Additional Past Alcohol Use History / Comment(s): QUIT SMOKING 30 YRS AGO, smoked for 5 yrs Past Drug Use History: None Reported - Past Family History Father History Unknown: Yes Family Medical History: Cancer Medications and Allergies Home Medications Medication Instructions Recorded Confirmed Type Ascorbic Acid [Vitamin C] 1,000 mg PO DAILY 05/19/18 02/08/19 History Aspirin EC [Ecotrin Low Dose] 81 mg PO DAILY 05/19/18 02/08/19 History Cyanocobalamin (Vitamin B-12) 1,000 mcg PO DAILY 05/19/18 02/08/19 History [Vitamin B-12] Glucosamine/MSM/Chrond/D3/Bosw 3 tablet PO DAILY 05/19/18 02/08/19 History [Jrnuiiaqvwf-Iuwrts-SBX-D3 Cplt] Omeprazole 20 mg PO DAILY 05/19/18 02/08/19 History PARoxetine HCL 40 mg PO DAILY 05/19/18 02/08/19 History amLODIPine BESYLATE [Norvasc] 2.5 mg PO DAILY 05/19/18 02/08/19 History Meloxicam 15 mg PO DAILY 02/08/19 02/08/19 History Ranitidine HCl 150 mg PO DAILY 02/08/19 02/08/19 History Aspirin 325 mg PO BID #120 tab 02/13/19 Rx HYDROcodone/APAP 5-325MG [[place] 1 - 2 each PO Q4-6H PRN #50 tab 02/13/19 Rx 5-325] Sennosides-Docusate Sodium 1 tab PO BID #60 tablet 02/13/19 Rx [Senokot-S] Allergies Allergy/AdvReac Type Severity Reaction Status Date / Time No Known Allergies Allergy Verified 02/05/19 11:03 Physical Exam Vitals: Vital Signs Temp Pulse Pulse Pulse Resp BP BP 02/13/19 07:12 97.7 F 69 15 134/71 02/13/19 00:05 98.7 F 73 14 112/64 02/12/19 20:30 80 124/62 02/12/19 20:15 73 129/65 02/12/19 20:00 78 103/54 02/12/19 19:45 74 118/56 02/12/19 19:30 77 105/62 02/12/19 19:15 78 113/66 02/12/19 19:01 02/12/19 19:00 79 119/61 02/12/19 18:45 74 126/75 02/12/19 18:36 99.2 F 83 16 115/60 02/12/19 17:57 70 16 113/73 02/12/19 17:42 69 16 117/56 02/12/19 17:27 97.2 F L 69 12 117/57 02/12/19 15:00 67 16 125/63 02/12/19 14:14 97.9 F 70 16 131/59 Pulse Ox 02/13/19 07:12 95 02/13/19 00:05 93 L 02/12/19 20:30 02/12/19 20:15 02/12/19 20:00 02/12/19 19:45 02/12/19 19:30 02/12/19 19:15 02/12/19 19:01 92 L 02/12/19 19:00 02/12/19 18:45 02/12/19 18:36 88 L 02/12/19 17:57 94 L 02/12/19 17:42 94 L 02/12/19 17:27 92 L 02/12/19 15:00 97 02/12/19 14:14 96 Intake and Output 02/12/19 02/13/19 02/13/19 22:59 06:59 14:59 Intake Total 1301 1200 400 Output Total 50 Balance 1251 1200 400 Intake: IV 701 Intake, IV Titration 300 1050 Amount Lactated Ringers 1,000 ml 300 1000 @ 100 mls/hr IV .Q10H YVETTE Rx#:[id number] ceFAZolin 2 gm In Sodium 50 Chloride 0.9% 50 ml @ 100 mls/hr IVPB Q8H YVETTE Rx#: [id number] Oral 300 150 400 Output: Estimated Blood Loss 50 Other: Voiding Method Toilet Toilet # Voids 2 4 1 PHYSICAL EXAMINATION: GENERAL: The patient is alert and oriented x3, not in any acute distress. Well developed, well nourished. HEENT: Pupils are round and equally reacting to light. EOMI. No scleral icterus. No conjunctival pallor. Normocephalic, atraumatic. No pharyngeal erythema. No thyromegaly. CARDIOVASCULAR: S1 and S2 present. No murmurs, rubs, or gallops. PULMONARY: Chest is clear to auscultation, no wheezing or crackles. ABDOMEN: Soft, nontender, nondistended, normoactive bowel sounds. No palpable organomegaly. MUSCULOSKELETAL: No joint swelling or deformity. Right knee postsurgical defect EXTREMITIES: No cyanosis, clubbing, or pedal edema. NEUROLOGICAL: Gross neurological examination did not reveal any focal deficits. SKIN: No rashes. Results CBC & Chem 7: 02/13/19 06:56 Labs: Abnormal Lab Results - Last 24 Hours (Table) 02/13/19 Range/Units 06:56 WBC 17.6 H (3.8-10.6) k/uL Neutrophils # 15.2 H (1.3-7.7) k/uL Monocytes # 1.1 H (0-1.0) k/uL Assessment and Plan Plan: Leukocytosis no evidence of infection at this time no further testing is necessary patient can be discharged without any antibiotics at this time. -Hypertension resume amlodipine. -DVT prophylaxis per primary service -Right knee arthroplasty
[2019-02-13 14:47] VITALS: BP 110/65; PULSE 74; RESP 16
== END 2019-02-13 18:14 | disposition home health service (06) ==
LOC: OR 13:32 → 4SSUR 17:23 → OR 02-13 18:14
PROVIDERS: ATTEND Orthopaedic Surgery
DX: M17.11 Unilateral primary osteoarthritis, right knee (principal); M21.161 Varus deformity, not elsewhere classified, right knee; I10 Essential (primary) hypertension; I83.90 Asymptomatic varicose veins of unspecified lower extremity; F32.9 Major depressive disorder, single episode, unspecified; K44.9 Diaphragmatic hernia without obstruction or gangrene; K21.9 Gastro-esophageal reflux disease without esophagitis; F39 Unspecified mood [affective] disorder; Z79.1 Long term (current) use of non-steroidal anti-inflammatories (NSAID); Z79.82 Long term (current) use of aspirin; Z79.899 Other long term (current) drug therapy; Z96.652 Presence of left artificial knee joint; Z87.891 Personal history of nicotine dependence
CPT/HCPCS: 27447; 97161; 81025; 85025; 88300; 73560; C1713; C1776; C1772; J2250; J0171; J1100; J0690 ×3; J2405; J3010; J1885; J2795 ×2; J2704; J0735

== ENCOUNTER 2019-03-09 08:05 | Day surgery (SDC) | payer BC ==
[2019-03-07 08:43] VITALS: BMI 34.4
[~2019-03-09 08:05] MED LIST changes: -DEXAMETHASONE SOD PHOSPHATE 10 MG/ML 1 ML VIAL IV ONE; -HYDROmorphone 0.5 MG/0.5 ML SYRINGE IVP PRN; +LIDOCAINE 1% 20 ML VIAL (10MG/ML) FOR IV START INTRADERMA PRN; -MELOXICAM 7.5 MG TAB PO ONE; -ONDANSETRON 4 MG/2 ML VIAL IVP ONE; -ROPIVACAINE 246.25 MG, EPINEPHrine 0.5 MG, KETOROLAC 30 MG, cloNIDine HCL/PF 80 MCG, WA... MISCELLANE STA; -SCOPOLAMINE 1.5MG/72HR PATCH TRANSDERM ONE; -TRANEXAMIC ACID 1,000 MG in SODIUM CHLORIDE 0.9% 100 ML IVPB ONE
[2019-03-09 08:38] VITALS: TEMP 98.2
[2019-03-09] MEDS: LACTATED RINGERS 1,000 ML IV SCH ×2 (08:49→08:56)
[2019-03-09] MEDS ORDERED: LIDOCAINE 1% INJ 10MG/ML (20 ML MDV) ONE (08:59)
[2019-03-09] MEDS ORDERED: MIDAZOLAM 2 MG/2 ML VIAL ONE (08:59)
[2019-03-09] MEDS ORDERED: fentaNYL (PF) 50 MCG/ML 2 ML AMP ONE (08:59)
[2019-03-09] MEDS ORDERED: PROPOFOL 10 MG/ML 20 ML VIAL IV ONE (08:59)
--- NOTE | 2019-03-09 09:08 | P.PCN ---
Date of Procedure: 03/09/19 Procedure(s) Performed: BRIEF HISTORY: Patient is a 58-year-old, pleasant, white female, scheduled for an upper endoscopy as part of evaluation long-standing history of GERD. She is maintained on Prilosec 20 mg daily as well as Zantac at bedtime and has occasional heartburn. Scheduled for an upper endoscopy to rule out complicated reflux. PROCEDURE PERFORMED: Esophagogastroduodenoscopy with biopsy. PREOPERATIVE DIAGNOSIS: Long-standing history of GERD. IV sedation per anesthesia. PROCEDURE: After informed consent was obtained, the patient was brought into the endoscopy unit. IV sedation was administered by Anesthesia under continuous monitoring. Initially the Olympus GIF-140 video endoscope was inserted into the mouth. Esophagus intubated without any difficulty. It was gradually advanced into the stomach and duodenum and carefully examined. The bulb and the second part of the duodenum appeared normal. The scope at this time was withdrawn to the stomach, adequately insufflated with air, and upon careful examination, mucosa of the antrum had scattered erosions consistent with gastritis and biopsies were done from this area. The, body, cardia and the fundus appeared normal. The scope was then withdrawn into the esophagus. The GE junction was located at 35 cm from the incisors. Small to moderate size hiatal hernia noted. There were linear erosions and once a fissure ulceration at the GE junction consistent with LA grade C reflux esophagitis. The rest of the esophagus appear ed normal and the patient tolerated the procedure well. IMPRESSION: 1. Erosions/ulceration in the distal esophagus consistent with LA grade C reflux esophagitis. 2. Small to moderate size hiatal hernia 3. Mild antral gastritis. RECOMMENDATIONS: The findings of this examination were discussed with the patient as well as a family. She was advised to follow with the biopsy. She will increase the Prilosec to 20 mg twice daily and follow antrum reflux measures. She can take Zantac at bedtime. She'll be seen in office in 3 months.
[2019-03-09 09:27] VITALS: BP 132/86; PULSE 93; RESP 18
== END 2019-03-09 09:41 | disposition home or self-care (01) ==
LOC: ORWHC2ENDO 08:05
PROVIDERS: ATTEND Internal Medicine Gastroenterology
DX: K22.10 Ulcer of esophagus without bleeding (principal); K29.50 Unspecified chronic gastritis without bleeding; K21.0 Gastro-esophageal reflux disease with esophagitis; K44.9 Diaphragmatic hernia without obstruction or gangrene; Z79.82 Long term (current) use of aspirin; Z79.899 Other long term (current) drug therapy; I10 Essential (primary) hypertension; Z87.891 Personal history of nicotine dependence; M19.90 Unspecified osteoarthritis, unspecified site; F32.9 Major depressive disorder, single episode, unspecified; Z79.1 Long term (current) use of non-steroidal anti-inflammatories (NSAID); Z79.891 Long term (current) use of opiate analgesic
CPT/HCPCS: 81025; 88305; 43239; J2250; J2001; J3010; J2704